=== PATIENT | female | born 1940 | race African-American/Black ===

== ENCOUNTER 2020-09-26 19:30 | Inpatient (IN) | payer MEDICARE, OTHER ==
[~2020-09-26] VITALS: Ht 152.4 cm; Wt 62.9 kg
[~2020-09-26 19:30] MED LIST: AML5T GT; METO50TA15 PO
[2020-09-26 21:07] LABS: Urine Bacteria FEW /hpf (None Seen); Urine Blood Negative /uL (Negative); Urine Mucus FEW (None Seen); Urine Specific Gravity 1.014 (1.001-1.035); Urine WBC 4 /hpf (0 - 5)
[2020-09-26 22:11] LABS: Basophils # (auto) 0.1 10 ^3/uL (0-0.2); Basophils % (auto) 0.5 % (0.0-2.0); Eosinophils # (auto) 0 10 ^3/uL (0-0.8); Eosinophils % (auto) 0.3 % (0.0-7.0); Hematocrit 38.3 % (36.0-46.0); Hemoglobin 12.8 g/dL (12.2-16.2); Lymphocytes # (auto) 1.1 10 ^3/uL (0.4-5.4); Mean Corpuscular Hemoglobin 27.9 pg (28.0-32.0); Mean Corpuscular Hgb Conc. 33.6 g/dL (32.0-36.0); Mean Corpuscular Volume 83.2 fL (80.0-100.0); Neutrophils # (auto) 11.5 10 ^3/uL (1.6-8.6); Neutrophils % (auto) 84.2 % (37.0-80.0); Nucleated Red Blood Cells % 0.1 %; Platelet Count (auto) 292 10^3/uL (140-450); Red Cell Distribution Width 14.5 % (11.8-14.3); White Blood Cell 13.6 10^3/uL (4.4-10.8)
[2020-09-26 22:26] LABS: INR 1.03 (0.9-1.15); Partial Thromboplastin Time 34.1 sec (23.0-31.2)
[2020-09-26 22:32] LABS: Albumin 2.9 g/dL (3.4-5.0); Anion Gap 6 (5-15); Blood Urea Nitrogen 12 mg/dL (7-18); Calcium 9.2 mg/dL (8.5-10.1); Carbon Dioxide 25 mmol/L (21-32); Chloride 107 mmol/L (98-107); Glucose 116 mg/dL (74-106); Magnesium 1.9 mg/dL (1.6-2.6); Potassium 3.8 mmol/L (3.5-5.1); Sodium 138 mmol/L (136-145)
[2020-09-26 22:34] LABS: Alanine Aminotransferase 27 U/L (13-56); Aspartate Aminotransferase 23 U/L (15-37); BUN/Creatinine Ratio 14.5; GFR African American 85 mL/min; GFR Non-African American 70 mL/min
[2020-09-26 22:39] LABS: Alkaline Phosphatase 167 U/L (45-117); Bilirubin, Total 0.5 mg/dL (0.2-1.0)
[2020-09-26] MEDS ORDERED: NITROGLYCERIN 0.4 MG SL TAB SL PRN (23:15)
[2020-09-26] MEDS ORDERED: TEMAZEPAM 15 MG CAP PO PRN (23:15)
[2020-09-26] MEDS ORDERED: SODIUM CHLORIDE 0.9% 500 ML IV ONE (23:15)
[2020-09-26] MEDS ORDERED: MORPHINE SULF INJ 2 MG/ML SYRINGE 1ML IV PRN (23:15)
[2020-09-26] MEDS ORDERED: ONDANSETRON HCL 4 MG/2 ML VIAL IV PRN (23:15)
[2020-09-26] MEDS ORDERED: DexAMETHasone SOD PHOS 10MG/1ML VIAL INJ IV ONE (23:15)
[2020-09-26] MEDS ORDERED: AZITHROMYCIN 500MG/ 250ML 250 ML IV ONE (23:15)
[2020-09-26] MEDS ORDERED: AMIODARONE HCL 150 MG in D5W 5% 100 ML IV ONE (23:45)
[2020-09-26] MEDS ORDERED: AMIODARONE 450mg/250ml AE 250 ML IV SCH (23:45)
[2020-09-26] MEDS ORDERED: AMIODARONE HCL (50 MG/ ML) 3 ML VIAL IV ONE (23:54)
[2020-09-27] MEDS: cefTRIAXone 1GM/50ML D5W 50 ML IV SCH ×2 (00:02→23:52)
[2020-09-27] MEDS: ACETAMINOPHEN 325 MG TAB PO PRN ×2 (00:03→23:42)
[2020-09-27] MEDS ORDERED: diphenhdrAMINE HCL 25 MG CAP PO SCH (00:45)
[2020-09-27] MEDS ORDERED: predniSONE 20 MG TAB PO SCH (00:45)
[2020-09-27 06:30] LABS: Basophils # (auto) 0 10 ^3/uL (0-0.2); Basophils % (auto) 0.1 % (0.0-2.0); Eosinophils # (auto) 0 10 ^3/uL (0-0.8); Hematocrit 35.1 % (36.0-46.0); Hemoglobin 11.9 g/dL (12.2-16.2); Lymphocytes # (auto) 0.7 10 ^3/uL (0.4-5.4); Lymphocytes % (auto) 5.8 % (10.0-50.0); Mean Corpuscular Volume 82.4 fL (80.0-100.0); Monocytes # (auto) 0.2 10 ^3/uL (0-1.3); Monocytes % (auto) 1.9 % (0.0-12.0); Neutrophils # (auto) 10.6 10 ^3/uL (1.6-8.6); Neutrophils % (auto) 92.2 % (37.0-80.0); Platelet Count (auto) 264 10^3/uL (140-450); Red Blood Cells 4.26 10^6/uL (4.0-5.20); Red Cell Distribution Width 14.5 % (11.8-14.3); White Blood Cell 11.5 10^3/uL (4.4-10.8)
[2020-09-27] MEDS: AMIODARONE 450mg/250ml AE 250 ML IV SCH (06:40)
[2020-09-27 06:46] LABS: Chloride 105 mmol/L (98-107); Potassium 3.8 mmol/L (3.5-5.1); Sodium 136 mmol/L (136-145)
[2020-09-27 06:55] LABS: Alanine Aminotransferase 23 U/L (13-56); Albumin 2.4 g/dL (3.4-5.0); Alkaline Phosphatase 141 U/L (45-117); Anion Gap 10 (5-15); Aspartate Aminotransferase 19 U/L (15-37); BUN/Creatinine Ratio 14.9; Bilirubin, Total 0.4 mg/dL (0.2-1.0); Blood Urea Nitrogen 10 mg/dL (7-18); Calcium 8.4 mg/dL (8.5-10.1); Carbon Dioxide 21 mmol/L (21-32); GFR African American 109 mL/min; GFR Non-African American 90 mL/min; Glucose 197 mg/dL (74-106)
[2020-09-27] MEDS: amLODIPine BESYLATE 5 MG TAB PO SCH (10:00)
[2020-09-27] MEDS ORDERED: DexAMETHasone SOD PHOS 10MG/1ML VIAL INJ IV SCH (10:00)
[2020-09-27] MEDS: FAMOTIDINE 20 MG TAB PO SCH ×2 (10:11→23:02)
[2020-09-27] MEDS: ENOXAPARIN SOD 40 MG/0.4 ML SYRINGE SC SCH (10:11)
[2020-09-27] MEDS: AZITHROMYCIN 500MG/ 250ML 250 ML IV SCH (12:42)
[2020-09-27] MEDS: IPRATROPIUM BROM 0.5 MG/2.5ML INH SOL NEB SCH (19:15)
[2020-09-27] MEDS: ALBUTEROL SULF 2.5 MG/0.5ML(0.5%) NEB SOLN NEB SCH (19:15)
[2020-09-27 23:53] VITALS: BP 98/71
[2020-09-28] MEDS: IPRATROPIUM BROM 0.5 MG/2.5ML INH SOL NEB SCH ×4 (00:21→18:19)
[2020-09-28] MEDS: ALBUTEROL SULF 2.5 MG/0.5ML(0.5%) NEB SOLN NEB SCH ×4 (00:22→18:18)
[2020-09-28] MEDS: AMIODARONE 450mg/250ml AE 250 ML IV SCH (06:11)
[2020-09-28] MEDS: FAMOTIDINE 20 MG TAB PO SCH ×2 (10:00→22:40)
[2020-09-28] MEDS: amLODIPine BESYLATE 5 MG TAB PO SCH (10:00)
[2020-09-28] MEDS: ENOXAPARIN SOD 40 MG/0.4 ML SYRINGE SC SCH (10:00)
[2020-09-28] MEDS: AZITHROMYCIN 500MG/ 250ML 250 ML IV SCH (10:00)
[2020-09-28] MEDS ORDERED: AMIODARONE HCL 200 MG TAB PO ONE (10:45)
[2020-09-28] MEDS ORDERED: METOPROLOL TARTRATE 25 MG TAB PO ONE (14:45)
[2020-09-28] MEDS: ACETAMINOPHEN 325 MG TAB PO PRN (16:16)
[2020-09-28 17:20] VITALS: BP 118/77
[2020-09-28] MEDS ORDERED: DOCUSATE SOD 100 MG CAP PO PRN (21:00)
[2020-09-28 22:00] VITALS: BP 113/68
[2020-09-28] MEDS: APIXABAN 5 MG TAB PO SCH (22:41)
[2020-09-28] MEDS: METOPROLOL TARTRATE 25 MG TAB PO SCH (22:41)
[2020-09-28] MEDS: AMIODARONE HCL 200 MG TAB PO SCH (22:42)
[2020-09-28] MEDS: cefTRIAXone 1GM/50ML D5W 50 ML IV SCH (23:06)
[2020-09-29] MEDS: IPRATROPIUM BROM 0.5 MG/2.5ML INH SOL NEB SCH ×4 (00:40→19:04)
[2020-09-29] MEDS: ALBUTEROL SULF 2.5 MG/0.5ML(0.5%) NEB SOLN NEB SCH ×4 (00:40→19:04)
[2020-09-29 05:00] VITALS: BP 125/71
[2020-09-29 08:34] VITALS: BP 121/82
[2020-09-29] MEDS: AZITHROMYCIN 500MG/ 250ML 250 ML IV SCH (09:35)
[2020-09-29] MEDS: APIXABAN 5 MG TAB PO SCH ×2 (09:36→21:16)
[2020-09-29] MEDS: AMIODARONE HCL 200 MG TAB PO SCH ×2 (09:36→21:16)
[2020-09-29] MEDS: METOPROLOL TARTRATE 25 MG TAB PO SCH ×2 (09:36→21:17)
[2020-09-29] MEDS: amLODIPine BESYLATE 5 MG TAB PO SCH (09:37)
[2020-09-29] MEDS: FAMOTIDINE 20 MG TAB PO SCH ×2 (09:37→21:16)
[2020-09-29] MEDS: AMOXICILLIN/CLAVUL 875 MG TAB PO SCH ×2 (10:45→21:16)
[2020-09-29] MEDS: ACETAMINOPHEN 325 MG TAB PO PRN (10:58)
[2020-09-29 13:00] VITALS: BP 117/70
[2020-09-29 16:36] VITALS: BP 121/82
[2020-09-29 22:00] VITALS: BP 106/52
[2020-09-30] MEDS: IPRATROPIUM BROM 0.5 MG/2.5ML INH SOL NEB SCH ×3 (00:23→13:26)
[2020-09-30] MEDS: ALBUTEROL SULF 2.5 MG/0.5ML(0.5%) NEB SOLN NEB SCH ×3 (00:23→13:26)
[2020-09-30 05:00] VITALS: BP 112/73
[2020-09-30 09:00] VITALS: BP 103/62
[2020-09-30] MEDS ORDERED: METO25TA36 PO (09:31)
[2020-09-30] MEDS ORDERED: APIX5TAB PO (09:31)
[2020-09-30] MEDS ORDERED: AZIT250T9 PO (09:31)
[2020-09-30] MEDS ORDERED: AMIO200T33 PO (09:31)
[2020-09-30] MEDS ORDERED: AMOX-277 PO (09:32)
[2020-09-30] MEDS ORDERED: AZITHROMYCIN 250 MG TAB PO SCH (10:00)
[2020-09-30] MEDS: APIXABAN 5 MG TAB PO SCH (10:14)
[2020-09-30] MEDS: AMOXICILLIN/CLAVUL 875 MG TAB PO SCH (10:14)
[2020-09-30] MEDS: FAMOTIDINE 20 MG TAB PO SCH (10:15)
[2020-09-30] MEDS: amLODIPine BESYLATE 5 MG TAB PO SCH (10:15)
[2020-09-30] MEDS: METOPROLOL TARTRATE 25 MG TAB PO SCH (10:15)
[2020-09-30] MEDS: AMIODARONE HCL 200 MG TAB PO SCH (10:16)
[2020-09-30] MEDS ORDERED: DEXT1SYP9 PO (10:55)
[2020-09-30 13:00] VITALS: BP 119/71
== END 2020-09-30 15:30 | disposition home or self-care (01) | DRG 193 ==
LOC: EDUNIT# 19:30 → EDBD 19:30 → ER 19:30 → TELE 23:14 → TELE-WESTW 09-28 12:34
PROVIDERS: ADMIT Nurse Practitioner; ATTEND Internal Medicine
PROC: 05HB33Z Insertion of Infusion Device into Right Basilic Vein, Percutaneous Approach (ICD-10-PCS; principal; 2020-09-27)
PROC: B54MZZA Ultrasonography of Right Upper Extremity Veins, Guidance (ICD-10-PCS; 2020-09-27)
DX: J13 Pneumonia due to Streptococcus pneumoniae (principal); J96.00 Acute respiratory failure, unspecified whether with hypoxia or hypercapnia; I26.99 Other pulmonary embolism without acute cor pulmonale; N39.0 Urinary tract infection, site not specified; D68.69 Other thrombophilia; R44.0 Auditory hallucinations; I48.91 Unspecified atrial fibrillation; Z20.822 Contact with and (suspected) exposure to COVID-19; D72.829 Elevated white blood cell count, unspecified; I10 Essential (primary) hypertension; Z88.2 Allergy status to sulfonamides; Z91.041 Radiographic dye allergy status; Z85.038 Personal history of other malignant neoplasm of large intestine
CPT/HCPCS: 36415; 71045; 71046; 71250; 78582; 80053; 81001; 83036; 83605; 83735; 83880; 84443; 84484; 85025; 85379; 85610; 85730; 87040; 87426; 93005; 93306; 93970; 94640; 96365; 96367; 96375; G0378; J0696; J1100; J7060

== ENCOUNTER 2022-01-22 13:19 | Emergency (ER) | payer MEDICARE, OTHER ==
[~2022-01-22] VITALS: Ht 152.4 cm; Wt 68.0 kg
[~2022-01-22 13:19] MED LIST changes: +AMIO200T33 PO; +AMOX-277 PO; +APIX5TAB PO; +AZIT250T9 PO; +DEXT1SYP9 PO; +METO25TA36 PO; -METO50TA15 PO
[2022-01-22 13:20] VITALS: BP 162/80
[2022-01-22] MEDS ORDERED: MORPHINE SULFATE 4 MG/ML SYR/VIAL IV ONE (14:00)
[2022-01-22] MEDS ORDERED: ONDANSETRON HCL 4 MG/2 ML VIAL IV ONE (14:00)
[2022-01-22] MEDS ORDERED: ASPirin 81 mg TAB PO ONE (14:00)
[2022-01-22 14:04] LABS: Basophils # (auto) 0.1 10 ^3/uL (0-0.2); Basophils % (auto) 0.9 % (0.0-2.0); Eosinophils # (auto) 0.2 10 ^3/uL (0-0.8); Eosinophils % (auto) 2.8 % (0.0-7.0); Hematocrit 42.4 % (36.0-46.0); Hemoglobin 13.4 g/dL (12.2-16.2); Lymphocytes # (auto) 2.5 10 ^3/uL (0.4-5.4); Lymphocytes % (auto) 37.8 % (10.0-50.0); Mean Corpuscular Hemoglobin 27.2 pg (28.0-32.0); Mean Corpuscular Hgb Conc. 31.5 g/dL (32.0-36.0); Mean Corpuscular Volume 86.2 fL (80.0-100.0); Monocytes # (auto) 0.4 10 ^3/uL (0-1.3); Monocytes % (auto) 6.4 % (0.0-12.0); Neutrophils # (auto) 3.4 10 ^3/uL (1.6-8.6); Neutrophils % (auto) 52.1 % (37.0-80.0); Nucleated Red Blood Cells % 0.3 %; Red Blood Cells 4.92 10^6/uL (4.0-5.20); Red Cell Distribution Width 14.7 % (11.8-14.3); White Blood Cell 6.6 10^3/uL (4.4-10.8)
[2022-01-22 14:27] LABS: Calcium 9.4 mg/dL (8.5-10.1); Potassium 3.8 mmol/L (3.5-5.1)
[2022-01-22 14:31] LABS: BUN/Creatinine Ratio 18.3; Bilirubin, Total 0.6 mg/dL (0.2-1.0); Total Protein 8.4 g/dL (6.4-8.2)
[2022-01-22 15:54] LABS: Partial Thromboplastin Time 25.9 sec (24.6-33.4)
== END 2022-01-22 21:30 | disposition left against medical advice (07) ==
LOC: ER 13:19
DX: I24.9 Acute ischemic heart disease, unspecified (principal); I12.9 Hypertensive chronic kidney disease with stage 1 through stage 4 chronic kidney disease, or unspecified chronic kidney disease; N18.9 Chronic kidney disease, unspecified; E78.5 Hyperlipidemia, unspecified; K21.9 Gastro-esophageal reflux disease without esophagitis; Z90.710 Acquired absence of both cervix and uterus; Z88.2 Allergy status to sulfonamides; Z88.8 Allergy status to other drugs, medicaments and biological substances
CPT/HCPCS: 36415; 71045; 80053; 83735; 84484; 85025; 85379; 85610; 85730; 93005

== ENCOUNTER 2022-05-03 22:09 | Inpatient (IN) | payer MEDICARE, OTHER ==
[~2022-05-03] VITALS: Ht 152.4 cm; Wt 68.2 kg
[2022-05-03] MEDS ORDERED: IOHEXOL 350 MG/ML 100ML IJ ONE (22:42)
[2022-05-03] MEDS ORDERED: diphenhdrAMINE HCL 50 MG/1 ML VL IV ONE (23:15)
[2022-05-03] MEDS ORDERED: methylPREDNISolone SOD SUCC 125 MG/2 ML VL IV ONE (23:15)
[2022-05-04 04:26] LABS: Basophils # (auto) 0 10 ^3/uL (0-0.2); Basophils % (auto) 0.5 % (0.0-2.0); Eosinophils # (auto) 0.4 10 ^3/uL (0-0.8); Eosinophils % (auto) 5.2 % (0.0-7.0); Hematocrit 39.4 % (36.0-46.0); Hemoglobin 12.6 g/dL (12.2-16.2); Lymphocytes # (auto) 1.4 10 ^3/uL (0.4-5.4); Lymphocytes % (auto) 19.6 % (10.0-50.0); Mean Corpuscular Volume 84.3 fL (80.0-100.0); Monocytes # (auto) 0.2 10 ^3/uL (0-1.3); Monocytes % (auto) 3.3 % (0.0-12.0); Neutrophils # (auto) 5.1 10 ^3/uL (1.6-8.6); Neutrophils % (auto) 71.4 % (37.0-80.0); Red Blood Cells 4.67 10^6/uL (4.0-5.20); Red Cell Distribution Width 14.1 % (11.8-14.3); White Blood Cell 7.2 10^3/uL (4.4-10.8)
[2022-05-04 04:47] LABS: Albumin 3.6 g/dL (3.4-5.0); BUN/Creatinine Ratio 22.2; Potassium 3.8 mmol/L (3.5-5.1)
[2022-05-04 04:50] LABS: Bilirubin, Total 0.5 mg/dL (0.2-1.0); Total Protein 7.8 g/dL (6.4-8.2)
[2022-05-04] MEDS ORDERED: DOCUSATE SOD 100 MG CAP PO PRN (05:15)
[2022-05-04] MEDS ORDERED: MORPHINE SULFATE INJ 2 MG/ml SYRG IV PRN (05:15)
[2022-05-04] MEDS ORDERED: MAALOX PLUS or MAALOX 30 ML PO PRN (05:15)
[2022-05-04] MEDS ORDERED: ACETAMINOPHEN 325 MG TAB PO PRN (05:15)
[2022-05-04] MEDS ORDERED: HYDROcodone-ACET 5/325MG TAB PO PRN (05:15)
[2022-05-04] MEDS ORDERED: ONDANSETRON HCL 4 MG/2 ML VIAL IV PRN (05:15)
[2022-05-04 12:07] LABS: Urine Bacteria FEW /hpf (None Seen); Urine Blood Negative /uL (Negative); Urine WBC 1 /hpf (0 - 5)
[2022-05-04] MEDS ORDERED: LORazepam 0.5 MG TAB PO ONE (12:30)
[2022-05-04 17:45] VITALS: BP 129/66
== END 2022-05-04 18:00 | disposition home or self-care (01) | DRG 556 ==
LOC: ER 22:09 → TELE 05-04 05:09 → EDBD 05-04 05:09 → TELE 05-04 18:00
PROVIDERS: ADMIT Hospitalist; ATTEND Internal Medicine Geriatric Medicine
DX: M62.838 Other muscle spasm (principal); I12.9 Hypertensive chronic kidney disease with stage 1 through stage 4 chronic kidney disease, or unspecified chronic kidney disease; I48.91 Unspecified atrial fibrillation; N18.9 Chronic kidney disease, unspecified; K21.9 Gastro-esophageal reflux disease without esophagitis; R26.2 Difficulty in walking, not elsewhere classified; E78.5 Hyperlipidemia, unspecified; Z20.822 Contact with and (suspected) exposure to COVID-19; R04.0 Epistaxis; R29.702 NIHSS score 2; Z80.49 Family history of malignant neoplasm of other genital organs; Z82.49 Family history of ischemic heart disease and other diseases of the circulatory system; Z83.3 Family history of diabetes mellitus; Z85.038 Personal history of other malignant neoplasm of large intestine; Z90.710 Acquired absence of both cervix and uterus; Z88.2 Allergy status to sulfonamides; Z88.8 Allergy status to other drugs, medicaments and biological substances; Z91.041 Radiographic dye allergy status
CPT/HCPCS: 36415; 70496; 70551; 71045; 80053; 81001; 84484; 85025; 87426; 93005; 96374; 96375; 99291; G0378

== ENCOUNTER 2022-10-24 15:26 | Emergency (ER) | payer MEDICARE, OTHER ==
[~2022-10-24] VITALS: Ht 152.4 cm; Wt 68.5 kg
[~2022-10-24 15:26] MED LIST changes: -AMOX-277 PO; +AMOX875T4 PO; +AZIT-43 PO; -AZIT250T9 PO
[2022-10-24 17:01] LABS: Urine Bacteria NONE SEEN /hpf (None Seen); Urine Blood Negative /uL (Negative); Urine Mucus FEW (None Seen); Urine WBC 29 /hpf (0 - 5)
[2022-10-24 17:22] LABS: Basophils # (auto) 0.1 10 ^3/uL (0-0.2); Basophils % (auto) 1.1 % (0.0-2.0); Eosinophils # (auto) 0.3 10 ^3/uL (0-0.8); Eosinophils % (auto) 5.6 % (0.0-7.0); Hematocrit 40.3 % (36.0-46.0); Lymphocytes # (auto) 2.5 10 ^3/uL (0.4-5.4); Mean Corpuscular Hemoglobin 27.7 pg (28.0-32.0); Mean Corpuscular Hgb Conc. 32.2 g/dL (32.0-36.0); Mean Corpuscular Volume 85.9 fL (80.0-100.0); Monocytes # (auto) 0.4 10 ^3/uL (0-1.3); Monocytes % (auto) 6.5 % (0.0-12.0); Neutrophils # (auto) 2.4 10 ^3/uL (1.6-8.6); Neutrophils % (auto) 42.8 % (37.0-80.0); Nucleated Red Blood Cells % 0.4 %; Red Blood Cells 4.69 10^6/uL (4.0-5.20); Red Cell Distribution Width 14.4 % (11.8-14.3); White Blood Cell 5.7 10^3/uL (4.4-10.8)
[2022-10-24 17:38] LABS: Albumin 3.8 g/dL (3.4-5.0); Calcium 8.9 mg/dL (8.5-10.1); Magnesium 2.3 mg/dL (1.6-2.6); Potassium 4.2 mmol/L (3.5-5.1)
[2022-10-24 17:41] LABS: BUN/Creatinine Ratio 22.6 (10.0-20.0); Bilirubin, Total 0.6 mg/dL (0.2-1.0); Total Protein 7.8 g/dL (6.4-8.2)
[2022-10-24] MEDS ORDERED: diphenhdrAMINE HCL 50 MG/1 ML VL IV ONE (17:45)
[2022-10-24] MEDS ORDERED: IOHEXOL 350 MG/ML 100ML IJ ONE (20:02)
[2022-10-24] MEDS ORDERED: ALBU108A5 IN ×3 (22:03→22:58)
[2022-10-24] MEDS ORDERED: NITR-87 PO ×3 (22:03→22:58)
[2022-10-24 22:53] VITALS: BP 120/52
== END 2022-10-24 23:01 | disposition home or self-care (01) ==
LOC: ER 15:26
DX: R06.03 Acute respiratory distress (principal); R79.1 Abnormal coagulation profile; I48.91 Unspecified atrial fibrillation; E78.5 Hyperlipidemia, unspecified; K21.9 Gastro-esophageal reflux disease without esophagitis; I12.9 Hypertensive chronic kidney disease with stage 1 through stage 4 chronic kidney disease, or unspecified chronic kidney disease; N18.9 Chronic kidney disease, unspecified; Z90.49 Acquired absence of other specified parts of digestive tract; Z85.038 Personal history of other malignant neoplasm of large intestine; Z90.710 Acquired absence of both cervix and uterus; Z98.890 Other specified postprocedural states
CPT/HCPCS: 36415; 71046; 71260; 80053; 81001; 83735; 83880; 84484; 85025; 85379; 93005; 96374; 99285; J1200; Q9967

== ENCOUNTER 2023-09-15 07:53 | Emergency (ER) | payer MEDICARE, BC ==
[~2023-09-15] VITALS: Ht 152.4 cm; Wt 65.0 kg
[~2023-09-15 07:53] MED LIST changes: +ALBU108A5 IN; +NITR-87 PO
[2023-09-15 09:18] VITALS: BP 97/50; PULSE 74; RESP 16; TEMP 97.8; O2SAT 98
[2023-09-15] MEDS ORDERED: DICL1GEL59 EX (09:38)
[2023-09-15] MEDS ORDERED: ACET-1079 PO (09:38)
[2023-09-15] MEDS ORDERED: LIDO5CRE14 EX (09:38)
== END 2023-09-15 09:48 | disposition home or self-care (01) ==
LOC: ER 07:53
DX: M25.532 Pain in left wrist (principal); M25.552 Pain in left hip; I12.9 Hypertensive chronic kidney disease with stage 1 through stage 4 chronic kidney disease, or unspecified chronic kidney disease; N18.9 Chronic kidney disease, unspecified; E78.5 Hyperlipidemia, unspecified; Z90.710 Acquired absence of both cervix and uterus; W18.39XA Other fall on same level, initial encounter; Y93.89 Activity, other specified; Y92.89 Other specified places as the place of occurrence of the external cause; Y99.8 Other external cause status
CPT/HCPCS: 70450; 73110; 73502

== ENCOUNTER 2025-01-31 12:29 | Inpatient (IN) | payer MEDICARE, BC ==
[~2025-01-31] VITALS: Ht 152.4 cm; Wt 67.0 kg
[~2025-01-31 12:29] MED LIST changes: +ACET-1079 PO; +DICL1GEL59 EX; +LIDO5CRE14 EX
--- NOTE | 2025-01-31 13:53 | ECG ---
[facility] Test Date: 2025-01-31 Test Time: 13:38:08 Pat Name: KENNETH HAMEED Department: Room: 0222T Gender: F Occupational Therapy Department Chair: WINIFRED : 1939-03-11 Requested By: EMERGENCY EMERGENCY Order Number: [id number] Reading MD: Az He Measurements Intervals [place] Rate: 84 P: 0 MI: 0 QRS: 4 QRSD: 92 T: 30 QT: 409 QTc: 484 Interpretive Statements Atrial fibrillation Electronically Signed On 02-06-2025 20:21:02 PDT by Az He Please click the below link to view image of tracing.
--- NOTE | 2025-01-31 14:20 | ED.PDOC ---
History of Present Illness HPI Comments 84 y/o F, presents to the ED for CC of headache. Patient states, she has been experiencing a left sided headache with aura that radiates from her left-eye to her occipital region sudden onset, this morning (01/31/25). Patient further relays, to have associated symptoms of palpitations. Patient denies nausea, vomiting, weakness, numbness, or tingling. No other symptoms or modifying factors are present at this time. Chief Complaint: Headache Time Seen by MD: 13:15 Primary Care Provider: CHRIS PINK Allergies: Coded Allergies: Sodium Sulfate (Verified Allergy, Severe, 03/17/13) Sulfa Antibiotics (Verified Allergy, Severe, 02/09/15) Sulfa Drugs (Verified Allergy, Severe, 03/17/13) Iodine (Verified Allergy, Unknown, 09/27/20) Home Meds Active Scripts Lidocaine (Anorectal) (Lidocaine 5%) 5 % Cre, 5 % EX DAILYP PRN for 30 Days, #30 PATCH 0 Refills Prov:LISA CARVALHO NP 09/15/23 Diclofenac Sodium (Topical) (Voltaren Arthritis Pain) 1 % Gel, 1 % EX QID for 10 Days, #60 GRAMS 0 Refills Prov:LISA CARVALHO NP 09/15/23 Acetaminophen (Tylenol) 325 Mg Tb, 325 MG PO QID for 10 Days, #40 TAB 0 Refills Prov:LISA CARVALHO NP 09/15/23 Nitrofurantoin Monohydrate Mac (Macrobid) 100 Mg Cap, 100 MG PO BID for 7 Days, #14 CAP Prov:CLAYTON CHONG 10/24/22 Albuterol Sulfate (Albuterol Sulfate Hfa) 108 Mcg/Act Aer, 108 MCG IN TID PRN, #1 AER Prov:CLAYTON CHONG 10/24/22 Dextromethorphan-Guaifenesin (Robitussin-Dm) 10 Ml Sr, 10 ML PO Q4HP PRN, #250 ML 0 Refills Prov:DAVID MILLER MD 09/30/20 Amoxicillin & Pot Clavulanate (Amoxicillin/Potassium Cla) 875 Mg Tab, 1 TAB PO BID for 3 Days, #6 TAB Prov:DAVID MILLER MD 09/30/20 Azithromycin (Azithromycin) 250 Mg Tab, 500 MG PO DAILY for 3 Days, #6 TAB Prov:DAVID MILLER MD 09/30/20 Apixaban Base (ELIQUIS) 5 Mg Tab, 5 MG PO BID for 30 Days, #60 TAB Prov:DAVID MILLER MD 09/30/20 Amiodarone Hcl (Amiodarone Hcl) 200 Mg Tab, 200 MG PO BID for 30 Days, #60 TAB Prov:DAVID MILLER MD 09/30/20 Metoprolol Succinate (Toprol Xl) 25 Mg Tab, 1 TAB PO DAILY, #30 TAB 0 Refills Prov:DAVID MILLER MD 09/30/20 Reported Medications Amlodipine Besylate (NORVASC TABLET) 5 Mg Tb, 0 GT 03/17/13 Mode of Arrival: Ambulatory Past Medical History PAST MEDICAL HISTORY: AFIB, Cancer, CKF, GERD, High Lipids, HTN Surgical History: Appendectomy, Hysterectomy 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 Family History Family History: Reviewed,noncontributory to illness, Family hx of Cancer, Family hx of heart daniel Social History Smoker: Non-Smoker Alcohol: Denies ETOH Use Drugs: Denies Drug Use Lives In: Home Constitutional: denies: chills, diaphoresis, fatigue, fever, malaise, sweats, weakness, others EENTM: denies: blurred vision, double vision, ear bleeding, ear discharge, ear drainage, ear pain, ear ringing, eye pain, eye redness, hearing loss, mouth pain, mouth swelling, nasal discharge, nose bleeding, nose congestion, nose pain, photophobia, tearing, throat pain, throat swelling, voice changes, others Respiratory: denies: cough, hemoptysis, orthopnea, SOB at rest, shortness of breath, SOB with excertion, stridor, wheezing, others Cardiovascular: denies: chest pain, dizzy spells, diaphoresis, Dyspnea on exertion, edema, irregular heart beat, left arm pain, lightheadedness, palpitations, PND, syncope, others Gastrointestinal: denies: abdomen distended, abdominal pain, blood streaked bowels, constipated, diarrhea, dysphagia, difficulty swallowing, hematemesis, melena, nausea, poor appetite, poor fluid intake, rectal bleeding, rectal pain, vomiting, others Genitourinary: denies: abnormal vagina bleeding, burning, dyspareunia, dysuria, flank pain, frequency, hematuria, incontinence, pain, , vagina discharge, urgency, others Neurological: reports: headache; denies: dizziness, fainting, left sided numbness, left sided weakness, numbness, paresthesia, pre-existing deficit, right sided numbness, right sided weakness, seizure, speech problems, tingling, tremors, weakness, others Musculoskeletal: denies: back pain, gout, joint pain, joint swelling, muscle pain, muscle stiffness, neck pain, others Integumetry: denies: bruises, change in color, change in hair/nails, dryness, laceration, lesions, lumps, rash, wounds, others Allergic/Immunocompromised: denies: Difficulty Healing, Frequent Infections, Hives, Itching, others Hematologic/Lymphatic: denies: anemia, blood clots, easy bleeding, easy bruising, swollen glands, others Endocrine: denies: excessive hunger, excessive sweating, excessive thirst, excessive urination, flushing, intolerance to cold, intolerance to heat, unex plained weight gain, unexplained weight loss, others Psychiatric: denies: anxiety, bipolar disorder, depression, hopeless, panic disorder, schizophrenia, sleepless, suicidal, others All Other Systems: Reviewed and Negative Physical Exam General Appearance: Mild Distress HEENT: Normal ENT Inspection, Pharynx Normal, TMs Normal, Other (Tenderness to the left sinus region) Neck: Full Range of Motion, Non-Tender, Normal, Normal Inspection Respiratory: Chest Non-Tender, Lungs Clear, No Accessory Muscle Use, No Respiratory Distress, Normal Breath Sounds Cardiovascular: No Edema, No JVD, No Murmur, No Gallop, Normal Peripheral Pulses, Regular Rate/Rhythm Breast Exam: Deferred Gastrointestinal: No Organomegaly, Non Tender, No Pulsatile Mass, Normal Bowel Sounds, Soft Genitalia: Deferred Pelvic: Deferred Rectal: Deferred Extremities: No calf tenderness, Normal capillary refill, No pedal edema Musculoskeletal : Apperance: Normal Neurologic: Alert, 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 Was a procedure done?: No EKG EKG : Pulse Rate (adult): 84 Elmer: Normal Cardiac Rhythm: Afib Block: None Hypertrophy: None ST: Normal Differential Dx Considerations may include: frontal headache, migraine, dehydration, hypotension X-Ray, Labs, Meds, VS Vital Signs Date Time Temp Pulse Resp B/P (MAP) Pulse Ox O2 Delivery O2 Flow Rate FiO2 01/31/25 15:11 98.2 47 16 123/50 (74) 98 98.2 01/31/25 14:32 84 01/31/25 13:38 84 01/31/25 12:30 97.1 63 16 139/61 97 97.1 Lab Test 01/31/25 14:13 Range/Units White Blood Count 8.4 4.4-10.8 10^3/uL Red Blood Count 4.75 4.0-5.20 10^6/uL Hemoglobin 13.3 12.2-16.2 g/dL Hematocrit 40.4 36.0-46.0 % Mean Corpuscular Volume 85.1 80.0-100.0 fL Mean Corpuscular Hemoglobin 28.0 28.0-32.0 pg Mean Corpuscular Hemoglobin Concent 32.9 32.0-36.0 g/dL Red Cell Distribution Width 14.8 H 11.8-14.3 % Platelet Count 217 140-450 10^3/uL Mean Platelet Volume 9.4 6.9-10.8 fL Neutrophils (%) (Auto) 62.9 37.0-80.0 % Lymphocytes (%) (Auto) 23.9 10.0-50.0 % Monocytes (%) (Auto) 5.1 0.0-12.0 % Eosinophils (%) (Auto) 7.4 H 0.0-7.0 % Basophils (%) (Auto) 0.7 0.0-2.0 % Neutrophils # (Auto) 5.3 1.6-8.6 10 ^3/uL Lymphocytes # (Auto) 2.0 0.4-5.4 10 ^3/uL Monocytes # (Auto) 0.4 0-1.3 10 ^3/uL Eosinophils # (Auto) 0.6 0-0.8 10 ^3/uL Basophils # (Auto) 0.1 0-0.2 10 ^3/uL Nucleated Red Blood Cells 0.1 % Sodium Level 142 136-145 mmol/L Potassium Level 3.5 3.5-5.1 mmol/L Chloride Level 104 98-107 mmol/L Carbon Dioxide Level 26 20-31 mmol/L Anion Gap 12 5-15 Blood Urea Nitrogen 15 9-23 mg/dL Creatinine 1.05 H 0.550-1.02 mg/dL Glomerular Filtration Rate Calc 53 >90 mL/min BUN/Creatinine Ratio 14.3 10.0-20.0 Serum Glucose 176 H 74-106 mg/dL Calcium Level 9.7 8.7-10.4 mg/dL HEAD WITHOUT CONTRAST CT: IMPRESSION: 1. No acute intracranial abnormality. 2. Left maxillary sinusitis. The patient's CBC is within normal limits The chemistry panel is within normal limits except for a creatinine of 1.05 At this time, the patient is being admitted The patient is also being given Zithromax for the sinusitis Images Reviewed?: Images reviewed and evaluated by me Time of 1ST Reevaluation: 13:45 Reevaluation 1ST: Unchanged Patient Education/Counseling: Diagnosis, Treatment, Prognosis Family Education/Counseling: No Family Present SEPSIS Sepsis Screen Date sepsis recognized/suspect: Jan 31, 2025 Time Sepsis recognized/suspect: 1230 Recent Procedure: No On Antibiotic Therapy: No Respiratory Rate >20: No Heart Rate >90: No Temp<36 C (96.8 F) or >38.3 C: No SBP <90 or MAP <65 mmHG: No New Acute Mental Status Change: No Is the patient on CPAP, BIPAP,: No Physician Orders Urinalysis (01/31/25 14:01) Head Without Contrast (01/31/25 14:01) Clinic Manager (01/31/25 14:01) Pulse Oximetry (01/31/25 14:01) Blood Pressure (01/31/25 14:01) Heplock Iv (01/31/25 14:01) Vital Signs Date Time Temp Pulse Resp B/P (MAP) Pulse Ox O2 Delivery O2 Flow Rate FiO2 01/31/25 15:11 98.2 47 16 123/50 (74) 98 98.2 01/31/25 14:32 84 01/31/25 13:38 84 01/31/25 12:30 97.1 63 16 139/61 97 97.1 Laboratory Tests Test 01/31/25 14:13 White Blood Count 8.4 10^3/uL (4.4-10.8) Departure 1 Departure Time of Disposition: 17:13 Impression: Primary Impression: Cephalgia Qualified Codes: R51.9 - Headache, unspecified Additional Impressions: Autonomic dysfunction Maxillary sinusitis Qualified Codes: J01.00 - Acute maxillary sinusitis, unspecified Disposition: 09 ADMITTED INPATIENT Admit to: Tele Condition: Fair Critical Care Note Critical Care Time?: No Stability Stability form required: Yes Unstable for transfer: ED Physician Assesment (Clinical assesment) Heart Score Heart Score: Heart Score Response (Comments) Value History N/A 0 EKG N/A 0 Age N/A 0 Risk Factors N/A 0 Troponin N/A 0 Total 0 I personally scribed for BROOKLYNN SPENCE MD ([email or web address]) on 01/31/25 at 14:20. Electronically submitted by Mitzi Ty ([email or web address]). I personally scribed for BROOKLYNN SPENCE MD ([email or web address]) on 01/31/25 at 14:31. Electronically submitted by Mitzi Ty ([email or web address]). I personally scribed for BROOKLYNN SPENCE MD ([email or web address]) on 01/31/25 at 14:32. Electronically submitted by Mitzi Ty ([email or web address]). I personally scribed for BROOKLYNN SPENCE MD ([email or web address]) on 01/31/25 at 16:17. Electronically submitted by Mitzi Ty ([email or web address]). I personally scribed for BROOKLYNN SPENCE MD ([email or web address]) on 01/31/25 at 16:18. Electronically submitted by Mitzi Ty ([email or web address]). BROOKLYNN SPENCE MD Jan 31, 2025 14:20
[2025-01-31 14:33] LABS: Hematocrit 40.4 % (36.0-46.0); Hemoglobin 13.3 g/dL (12.2-16.2); Mean Corpuscular Hemoglobin 28.0 pg (28.0-32.0); Mean Corpuscular Volume 85.1 fL (80.0-100.0); Nucleated Red Blood Cells % 0.1 %
--- NOTE | 2025-01-31 14:39 | DVH ---
CT HEAD WITHOUT CONTRAST INDICATION: LUCAS COMPARISON: CT HEAD WITHOUT CONTRAST on DOS: 09/15/23, BRAIN HEAD WO CONTRAST on DOS: 05/04/22, HEAD WIT HOUT CONTRAST on DOS: 05/03/22 TECHNIQUE: CT of the head without intravenous contrast. RADIATION DOSE: CTDIvol: 53.46 mGy, DLP: 53.46 mGy*cm FINDINGS: There is no evidence of acute intracranial hemorrhage, extra-axial collection, mass effect, midline s hift, herniation or hydrocephalus. The ventricles, sulci and cisterns are age appropriate. The torres -white differentiation is intact. Complete opacification of the left maxillary sinus . Scattered op acification of the ethmoid air cells. The surrounding soft tissues and osseous structures are unrema rkable. IMPRESSION: 1. No acute intracranial abnormality. 2. Left maxillary sinusitis.
[2025-01-31 14:41] LABS: Chloride 104 mmol/L (98-107); Sodium 142 mmol/L (136-145)
[2025-01-31 14:43] LABS: Anion Gap 12 (5-15); Calcium 9.7 mg/dL (8.7-10.4); Carbon Dioxide 26 mmol/L (20-31)
[2025-01-31 14:45] LABS: Potassium 3.5 mmol/L (3.5-5.1)
[2025-01-31 14:48] LABS: Glucose 176 mg/dL (74-106)
[2025-01-31 15:15] LABS: BUN/Creatinine Ratio 14.3 (10.0-20.0); Blood Urea Nitrogen 15 mg/dL (9-23)
[2025-01-31 20:15] LABS: Urine Protein, UAD 1+ (Negative)
[2025-01-31 23:16] LABS: Amphetamine Screen, Urine Neg (NEGATIVE); Barbiturate Scree,Urine Neg (NEGATIVE); Benzodiazephine Screen, Urine Neg (NEGATIVE); Cocaine Screen, Urine Neg (NEGATIVE)
[2025-01-31 23:17] LABS: Phencyclidine Screen, Urine Neg (NEGATIVE)
[2025-01-31 23:18] LABS: Cannabinoid Screen, Urine Neg (NEGATIVE); Opiate Scree,Urine Neg (NEGATIVE)
[2025-01-31] MEDS ORDERED: ONDANSETRON HCL 4 MG/2 ML VIAL IV PRN (23:30)
[2025-01-31] MEDS ORDERED: ACETAMINOPHEN 325 MG TAB PO PRN (23:30)
[2025-01-31] MEDS ORDERED: MORPHINE SULFATE INJ 2 MG/ml SYRG IV PRN (23:30)
[2025-01-31] MEDS: ENOXAPARIN SOD 100 MG/1 ML SYRINGE SC SCH (23:30)
--- NOTE | 2025-01-31 23:33 | DVHHPRES ---
History of Present Illness Resident Creating Document: SCOTTIE CHRISTIANSON RESIDENT History of Present Illness This is an 84-year-old female with past medical history of questionable atrial fibrillation, glaucoma, hypertension, colon cancer status post colectomy, asthma, sleep apnea on CPAP presented to the ER with chief complain of headache, dizziness. Patient reported of 2 episodes of headache since last 2 days. She describes headache as heaviness, throbbing radiating from occipital to parietal region, associated with flashing lights and eye pain. She complains of dizziness without loss of consciousness, starting as the same time as headache. She also reports urinary urgency since last 6-7 months. Previous hospitalization: PMHx: Questionable atrial fibrillation (no EKG in [facility] record showing atrial fibrillation), glaucoma, hypertension, colon cancer status post colectomy, asthma, sleep apnea on CPAP PSHx: Colectomy, hysterectomy, appendectomy, lumpectomy, 3 surgeries of neck in 6 surgeries of back after trauma Social history: Denies smoking, alcohol, recreational drug use. Lives in house. Full code. Next of kin daughter Home medication: Albuterol, amlodipine, apixaban Allergic history: Iodine, sodium sulfate, sulfa antibiotics, sulfa drugs. Patient was examined at bedside today. Patient is admitted for further evaluation and management Review of Systems Review of Systems ROS: Constitutional: Denies weight loss, fever and chills. HEENT: Blurring, light flashing in bilateral eyes. Respiratory: Denies shortness of breath and cough Cardiovascular: Denies chest discomfort or palpitations GI: Denies abdominal pain, nausea, vomiting and diarrhea. : Urinary urgency, reports having to collecting system of bilateral kidneys Musculoskeletal: Denies myalgias and joint pain Skin: Denies rash and pruritus. Neurological: Dizziness, headache Allergies: Coded Allergies: Sodium Sulfate (Verified Allergy, Severe, 03/17/13) Sulfa Antibiotics (Verified Allergy, Severe, 02/09/15) Sulfa Drugs (Verified Allergy, Severe, 03/17/13) Iodine (Verified Allergy, Unknown, 09/27/20) Exam Vital Signs Vital Signs Date Time Temp Pulse Resp B/P (MAP) Pulse Ox O2 Delivery O2 Flow Rate FiO2 01/31/25 20:23 66 20 98 Room Air 01/31/25 20:23 98.0 115/73 (87) 98.0 Exam General: Patient alert and oriented in person, place and time. Patient following commands. HEENT: Normocephalic, atraumatic, moist mucous membranes Respiratory/pulmonary: Clear lungs bilaterally, vesicular murmurs present in almost all lung lewis, no associated crackles or wheezes. Cardiovascular: Normal heart sounds S1 and S2 with no associated murmurs Abdomen: Abdomen nondistended, there is no pain to palpation in any of the abdominal quadrants, no palpable masses. Extremities: Grade 1 pitting edema in bilateral foot Peripheral Pulses: 3+ Radial (R). 3+ Radial (L). 3+ Dorsalis pedis (R). 3+ Dorsalis pedis(L) Skin: No rashes or pruritus, there is no sacral edema present at this time. Neurological: Intact cranial nerves with no focal neurologic deficits Labs/Xrays Labs Test 01/31/25 19:40 01/31/25 14:13 Range/Units Urine Color Yellow Yellow Urine Clarity Clear Clear Urine pH 6.0 5.0-9.0 Urine Specific Pandora 1.033 1.001-1.035 Urine Protein 1+ H Negative Urine Ketones 1+ H Negative Urine Blood Negative Negative /uL Urine Nitrite Negative Negative Urine Bilirubin Negative Negative Urine Urobilinogen 2 H Negative mg/dL Urine Leukocyte Esterase 1+ Negative /uL Urine RBC 2 0 - 4 /hpf Urine Microscopic WBC 3 0-5 /HPF Urine Squamous Epithelial Cells Few <5 /hpf Urine Bacteria None seen None Seen /hpf Urine Hyaline Casts Mod 0 - 2 /lpf Urine Mucus Few None Seen Urine Glucose Normal Normal mg/dL Urine Barbiturates Screen Neg NEGATIVE Urine Amphetamines Screen Neg NEGATIVE Urine Benzodiazepines Screen Neg NEGATIVE Urine Cocaine Screen Neg NEGATIVE White Blood Count 8.4 4.4-10.8 10^3/uL Red Blood Count 4.75 4.0-5.20 10^6/uL Hemoglobin 13.3 12.2-16.2 g/dL Hematocrit 40.4 36.0-46.0 % Mean Corpuscular Volume 85.1 80.0-100.0 fL Mean Corpuscular Hemoglobin 28.0 28.0-32.0 pg Mean Corpuscular Hemoglobin Concent 32.9 32.0-36.0 g/dL Red Cell Distribution Width 14.8 H 11.8-14.3 % Platelet Count 217 140-450 10^3/uL Mean Platelet Volume 9.4 6.9-10.8 fL Neutrophils (%) (Auto) 62.9 37.0-80.0 % Lymphocytes (%) (Auto) 23.9 10.0-50.0 % Monocytes (%) (Auto) 5.1 0.0-12.0 % Eosinophils (%) (Auto) 7.4 H 0.0-7.0 % Basophils (%) (Auto) 0.7 0.0-2.0 % Neutrophils # (Auto) 5.3 1.6-8.6 10 ^3/uL Lymphocytes # (Auto) 2.0 0.4-5.4 10 ^3/uL Monocytes # (Auto) 0.4 0-1.3 10 ^3/uL Eosinophils # (Auto) 0.6 0-0.8 10 ^3/uL Basophils # (Auto) 0.1 0-0.2 10 ^3/uL Nucleated Red Blood Cells 0.1 % Sodium Level 142 136-145 mmol/L Potassium Level 3.5 3.5-5.1 mmol/L Chloride Level 104 98-107 mmol/L Carbon Dioxide Level 26 20-31 mmol/L Anion Gap 12 5-15 Blood Urea Nitrogen 15 9-23 mg/dL Creatinine 1.05 H 0.550-1.02 mg/dL Glomerular Filtration Rate Calc 53 >90 mL/min BUN/Creatinine Ratio 14.3 10.0-20.0 Serum Glucose 176 H 74-106 mg/dL Hemoglobin A1c 5.4 <5.7 % A1C Calcium Level 9.7 8.7-10.4 mg/dL SEPSIS Sepsis Screen Date sepsis recognized/suspect: Jan 31, 2025 Time Sepsis recognized/suspect: 2023 Recent Procedure: No On Antibiotic Therapy: No Respiratory Rate >20: No Heart Rate >90: No Temp<36 C (96.8 F) or >38.3 C: No SBP <90 or MAP <65 mmHG: No New Acute Mental Status Change: No Is the patient on CPAP, BIPAP,: No Physician Orders Hepatic Panel (01/31/25 22:44) C-Reactive Protein (01/31/25 22:44) Drug Screen (01/31/25 22:44) Lipase (01/31/25 22:44) Lipid Panel (01/31/25 22:44) Magnesium (01/31/25 22:44) Phosphorus (01/31/25 22:44) PTPTT (01/31/25 22:44) Thyroid Stimulating Hormone (01/31/25 22:44) Vitamin B12 (01/31/25 22:44) Vitamin D, 25-Hydroxy (01/31/25 22:44) Vital Signs Date Time Temp Pulse Resp B/P (MAP) Pulse Ox O2 Delivery O2 Flow Rate FiO2 01/31/25 20:23 66 20 98 Room Air 01/31/25 20:23 98.0 66 20 115/73 (87) 98 98.0 Laboratory Tests Test 01/31/25 14:13 White Blood Count 8.4 10^3/uL (4.4-10.8) Assessment/Plan Assessment/Plan Presyncope, rule out cardiac causes Paroxysmal atrial fibrillation Primary headache Maxillary sinusitis Head CT shows left maxillary sinusitis Echocardiogram, carotid duplex, CXR ordered COVID and influenza serology ordered Orthostatic Vitals ordered Monitor on telemetry for life-threatening arrhythmias Started on Unasyn Hypertension Continue amlodipine 5 mg daily History of glaucoma Continue latanoprost CKD class IIIa GFR-53 Strict control of blood pressure, diabetes Discussed avoiding nephrotoxins like NSAIDS, contrast Low salt diet, maintain hydration Repeat BMP Hypokalemia Supplemented Repeat BMP Questionable paroxysmal atrial fibrillation, on Eliquis EKG in [facility] shows sinus tachycardia with PACs Patient on Eliquis at home, continue therapeutic Lovenox DIET: Cardiac DVT PROPHYLAXIS: Lovenox GI PROPHYLAXIS: Protonix CODE STATUS: Goals of care discussed with patient at bedside for more than 35 minutes. Full code DISPOSITION: Telemetry Patient's status and plan discussed with the patient. Case discussed with Dr. Cheek Plan discussed with: Patient, Other (Nurses) My Orders Orders - SCOTTIE CHRISTIANSON RESIDENT Procedure Category Date Status Time Hepatic Panel LAB 01/31/25 Logged 22:44 C-Reactive Protein LAB 01/31/25 Logged 22:44 Drug Screen LAB 01/31/25 In Process 22:44 Lipase LAB 01/31/25 Logged 22:44 Lipid Panel LAB 01/31/25 Logged 22:44 Magnesium LAB 01/31/25 Logged 22:44 Phosphorus LAB 01/31/25 Logged 22:44 PTPTT LAB 01/31/25 Logged 22:44 Thyroid Stimulating LAB 01/31/25 In Process Hormone 22:44 Vitamin B12 LAB 01/31/25 Logged 22:44 Vitamin D, 25-Hydroxy LAB 01/31/25 In Process 22:44 Date of Service: Jan 31, 2025 Billing Provider: LISA CHEEK MD Common Visit Codes: [id number] INP/OBS CARE (HIGH) Secondary Visit Codes: [id number] CARE PLAN 30 MINUTES SCOTTIE CHRISTIANSON RESIDENT Jan 31, 2025 23:33 LISA CHEEK MD Feb 01, 2025 09:04
[2025-02-01 00:02] LABS: INR 1.12 (0.9-1.15); Partial Thromboplastin Time 29.9 SEC (24.5-34.5); Prothrombin Time 11.7 sec (9.3-11.8)
[2025-02-01 00:05] LABS: Alanine Aminotransferase 17.0 U/L (7-40); Albumin 4.1 g/dL (3.2-4.8); Alkaline Phosphatase 83.0 U/L (46-116); Bilirubin, Direct 0.1 mg/dL (<0.3); Cholesterol 191.0 mg/dL (< 200); HDL Cholesterol 59.0 mg/dL (40-59); Magnesium 1.7 mg/dL (1.6-2.6); Total Protein 7.8 g/dL (5.7-8.2); Triglycerides 101.0 mg/dL (< 150)
[2025-02-01 00:06] LABS: Bilirubin, Total 0.5 mg/dL (0.2-1.0)
[2025-02-01 00:19] LABS: Lipase 42.0 U/L (12-53)
[2025-02-01 01:22] LABS: Hematocrit 37.8 % (36.0-46.0); Hemoglobin 12.2 g/dL (12.2-16.2); Mean Corpuscular Hemoglobin 27.7 pg (28.0-32.0); Mean Corpuscular Volume 85.6 fL (80.0-100.0); Nucleated Red Blood Cells % 0.0 %
[2025-02-01 01:40] LABS: Alanine Aminotransferase 18 U/L (7-40); Albumin 4.1 g/dL (3.2-4.8); Alkaline Phosphatase 83 U/L (46-116); Anion Gap 12 (5-15); BUN/Creatinine Ratio 18.6 (10.0-20.0); Bilirubin, Total 0.5 mg/dL (0.2-1.0); Blood Urea Nitrogen 16 mg/dL (9-23); Calcium 9.3 mg/dL (8.7-10.4); Carbon Dioxide 25 mmol/L (20-31); Chloride 104 mmol/L (98-107); Sodium 141 mmol/L (136-145); Total Protein 7.8 g/dL (5.7-8.2)
[2025-02-01 01:43] LABS: Glucose 172 mg/dL (74-106); Potassium 3.1 mmol/L (3.5-5.1)
[2025-02-01 02:05] LABS: COVID19 ANTIGEN SOFIA FIA NEGATIVE (NEGATIVE)
[2025-02-01] MEDS ORDERED: AMPICILLIN & SULBACTAM SODIUM 3 GM in SODIUM CHL 0.9% 100 ML IV SCH ×2 (02:30→09:00)
[2025-02-01 04:04] LABS: Hematocrit 35.8 % (36.0-46.0); Hemoglobin 11.9 g/dL (12.2-16.2); Mean Corpuscular Hemoglobin 28.2 pg (28.0-32.0); Mean Corpuscular Volume 85.1 fL (80.0-100.0); Nucleated Red Blood Cells % 0.1 %
[2025-02-01 04:12] LABS: Chloride 105 mmol/L (98-107); Sodium 143 mmol/L (136-145)
[2025-02-01 04:13] LABS: Anion Gap 11 (5-15); Carbon Dioxide 27 mmol/L (20-31)
[2025-02-01 04:14] LABS: Calcium 9.2 mg/dL (8.7-10.4)
[2025-02-01 04:18] LABS: BUN/Creatinine Ratio 18.1 (10.0-20.0); Blood Urea Nitrogen 13 mg/dL (9-23)
[2025-02-01 04:28] LABS: Glucose 111 mg/dL (74-106); Potassium 3.0 mmol/L (3.5-5.1)
--- NOTE | 2025-02-01 04:40 | DVH ---
CHEST RADIOGRAPH Indication: Presyncope Technique: 1 view Comparison: CXRP on DOS: 05/03/22, CHEST PORTABLE on DOS: 05/03/22, CHEST XRAY 1 VIEW on DOS: 01/22/22 FINDINGS: Large skin fold overlying the right chest. Lines and Tubes: External leads. Lungs/Pleura: No focal consolidation, pleural effusion or pneumothorax. Interstitial opacities within normal limits. Cardiomediastinum: Normal heart size for technique. Other: No acute osseous abnormality. Cervical fixation hardware. IMPRESSION: 1. No acute cardiopulmonary abnormality within the exam limitation.
[2025-02-01] MEDS: MAGNESIUM SULFATE 1GM/100ML 100 ML IV ONE (05:34)
[2025-02-01] MEDS ORDERED: POTASSIUM CHL 20MEQ/100ML 100 ML IV SCH (08:00)
[2025-02-01] MEDS: AMPICILLIN & SULBACTAM SODIUM 3 GM in SODIUM CHL 0.9% 100 ML IV SCH (08:54)
[2025-02-01] MEDS: POTASSIUM CHL 20MEQ/100ML 100 ML IV SCH (09:06)
[2025-02-01] MEDS: PANTOPRAZOLE 40 MG TAB PO ONE (09:25)
[2025-02-01] MEDS ORDERED: PANTOPRAZOLE 40 MG/10 ML VIAL INJ IV SCH (10:00)
[2025-02-01] MEDS: ENOXAPARIN SOD 80 MG/0.8ML SYRINGE SC SCH (10:29)
[2025-02-01] MEDS: POTASSIUM CHLORIDE 60 MEQ, LIDOCAINE 1% (LOCAL ANESTH.) 6 ML in SODIUM CHL 0.9% 500 ML IV ONE (11:30)
--- NOTE | 2025-02-01 11:58 | DVHSR ---
APPROVED REPORT EXAM: Two-dimensional and M-mode echocardiogram with Doppler and color Doppler. Blood Pressure: 131/97 mmHg INDICATION Presyncope RISK FACTORS Height: 60, Weight: 143 DIMENSIONS LVDd (3.8-5.7cm)LA (2D)4.0 (1.9-4.0cm)Aortic Root2.7 (2.0-3.7cm) LVDs (2.5-4.0cm)LA (MM) (1.9-4.0cm)Aortic Cusp Exc1.4 (1.5-2.0cm) EF (%) 60.0 (55-70%)Rt. Atrium3.0 (1.9-4.0cm)Asc. Aorta cm Mitral Valve MitralMitral Stenosis E wave1.07m/sMV Mean GR.mmHg A wave0.59m/sMV Peak GR.mmHg E/A ratio1.82D MVAcm2 DECEL [id number] 1/2 Timems Aortic Valve Aortic ValveAortic Stenosis V11.01m/Olivia Mean GR.3mmHg V21.19m/Olivia Peak GR.6mmHg LVOT Diameter1.6 (1.8-2.4cm)Doppler AVA1.71cm2 Tricuspid Valve TR Velocity2.32m/s [id number] Conclusion lvef 60% mild lvh normal rv function left atrium enlarged mild
[2025-02-01] MEDS: METOPROLOL SUCCINATE XL 50 MG TAB PO ONE (15:24)
[2025-02-01 15:50] VITALS: BP 124/65; PULSE 90; RESP 17; TEMP 98.1; O2SAT 95
[2025-02-01 15:51] VITALS: BP 124/65; PULSE 68; PULSE 88; RESP 17; RESP 18; TEMP 98.1; O2SAT 95
[2025-02-01] MEDS ORDERED: AMLO1TAB23 PO (16:29)
[2025-02-01] MEDS ORDERED: LIDO1PAD55 TOP (16:30)
[2025-02-01] MEDS ORDERED: FLUT50SP NAS (16:30)
[2025-02-01] MEDS ORDERED: TRAM50TA2 PO (16:32)
[2025-02-01] MEDS ORDERED: LATA0.008 EACHEYE (16:33)
[2025-02-01] MEDS ORDERED: TIMO0.5S32 EACHEYE (16:33)
--- NOTE | 2025-02-01 17:43 | DVHPNRES ---
Progress Note Date Seen: Feb 01, 2025 Resident Creating Document: CARLOS MIKE RESIDENT Medical Necessity Reason Pt with a Central, PICC or Fol: No Subjective Review of Systems This is an 84-year-old female with past medical history of questionable atrial fibrillation, glaucoma, hypertension, colon cancer status post colectomy, asthma, sleep apnea on CPAP presented to the ER with chief complain of headache, dizziness. Patient reported of 2 episodes of headache since last 2 days. She describes headache as heaviness, throbbing radiating from occipital to parietal region, associated with flashing lights and eye pain. She complains of dizziness without loss of consciousness, starting as the same time as headache. She also reports urinary urgency since last 6-7 months. PMHx: Questionable atrial fibrillation (no EKG in [facility] record showing atrial fibrillation), glaucoma, hypertension, colon cancer status post colectomy, asthma, sleep apnea on CPAP PSHx: Colectomy, hysterectomy, appendectomy, lumpectomy, 3 surgeries of neck in 6 surgeries of back after trauma Social history: Denies smoking, alcohol, recreational drug use. Lives in house. Full code. Next of kin daughter Home medication: Albuterol, amlodipine, apixaban Allergic history: Iodine, sodium sulfate, sulfa antibiotics, sulfa drugs. The patient was seen and examined at bedside. Overnight events were reviewed. She reports having headache and visual floaters. She denies any other complaints. Objective vital signs Vital Sign Date Time Temp Pulse Resp B/P (MAP) Pulse Ox O2 Delivery O2 Flow Rate FiO2 02/01/25 15:51 68 18 95 Room Air* 0 21 02/01/25 15:51 98.1 124/65 (84) 98.1 medications Current Medications Medications Dose Ordered Sig/Jaclyn Route Start Time Stop Time Status Last Admin Dose Admin Acetaminophen 325 mg Q4HP PRN PO 01/31/25 23:30 Ondansetron HCl 4 mg Q4HP PRN IV 01/31/25 23:30 Morphine Sulfate 2 mg Q4HPRN PRN IV 01/31/25 23:30 Hold Amlodipine Besylate 5 mg DAILY PO 02/01/25 10:00 02/01/25 10:28 5 MG Latanoprost 1 drop HS EACHEYE 02/01/25 22:00 Pantoprazole Sodium 40 mg DAILY@0600 PO 02/02/25 06:00 Ampicillin Sodium/ Sulbactam Sodium 3 gm/Sodium Chloride 100 ml @ 100 mls/hr Q6H IV 02/01/25 09:00 02/01/25 16:31 100 MLS/HR Enoxaparin Sodium 70 mg Q12HR SC 02/01/25 10:00 02/01/25 10:29 70 MG Metoprolol Succinate 25 mg DAILY PO 02/02/25 10:00 Examination Exam General: Patient alert and oriented in person, place and time. Patient following commands. HEENT: Normocephalic, atraumatic, moist mucous membranes Respiratory/pulmonary: Clear lungs bilaterally, vesicular murmurs present in almost all lung lewis, no associated crackles or wheezes. Cardiovascular: Normal heart sounds S1 and S2 with no associated murmurs Abdomen: Abdomen nondistended, there is no pain to palpation in any of the abdominal quadrants, no palpable masses. Extremities: 1+ pitting edema in bilateral lower extremities. Peripheral Pulses: 3+ Radial (R). 3+ Radial (L). 3+ Dorsalis pedis (R). 3+ Dorsalis pedis(L) Skin: No rashes or pruritus, there is no sacral edema present at this time. Neurological: Intact cranial nerves with no focal neurologic deficits laboratory and microbiology Laboratory Tests 02/01/25 03:45 Test 02/01/25 03:45 Range/Units Serum Glucose 111 H 74-106 mg/dL Labs and/or images reviewed: Labs reviewed by me, Image(s) reviewed by me Problem List/Assessment/Plan Problem List/Assessment/Plan Presyncope, ruled out cardiac causes Paroxysmal atrial fibrillation CXR: Normal Echocardiogram: LV ejection fraction 60%, mild LVH, normal RV function, left atrium enlarged mildly. COVID and influenza negative Orthostatic vitals negative Monitor on telemetry for life-threatening arrhythmias EKG shows sinus tachycardia with PACs, EKG atrial fibrillation Metoprolol 25 mg p.o. daily Patient on Eliquis at home, continue therapeutic Lovenox Headaches secondary to maxillary sinusitis Head CT shows left maxillary sinusitis IV ampicillin sulbactam Hypertension Continue amlodipine 5 mg daily Glaucoma Continue latanoprost CKD class IIIa GFR-53 Strict control of blood pressure, diabetes Discussed avoiding nephrotoxins like NSAIDS, contrast Low salt diet, maintain hydration Hypokalemia Supplemented Monitor labs GI prophylaxis: Pantoprazole DVT prophylaxis: Lovenox Diet: Cardiac Goals of care discussed with the patient for more than 27 minutes: Full code status Case discussed with , patient and RN Plan discussed with: Patient (RN), Other Date of Service: Feb 01, 2025 Billing Provider: GRANT FLORES MD Common Visit Codes: [id number] INP/OBS CARE(HIGH) CARLSO MIKE RESIDENT Feb 01, 2025 17:43 GRANT FLORES MD Feb 04, 2025 19:28
[2025-02-01 20:00] VITALS: PULSE 73; PULSE 91; RESP 18; O2SAT 99
[2025-02-01 21:00] VITALS: BP 117/57; PULSE 73; RESP 18; TEMP 98.6; O2SAT 99
[2025-02-01] MEDS: LATANOPROST 0.005 % OPTH(EYE) SOL 2.5ML EACHEYE SCH (22:37)
[2025-02-02 01:00] VITALS: BP 111/52; PULSE 75; RESP 17; TEMP 99.2; O2SAT 95
[2025-02-02 05:00] VITALS: BP 145/52; PULSE 71; RESP 16; TEMP 99.1; O2SAT 97
[2025-02-02] MEDS: PANTOPRAZOLE 40 MG TAB PO SCH (05:50)
[2025-02-02 07:08] LABS: Hematocrit 35.4 % (36.0-46.0); Hemoglobin 11.8 g/dL (12.2-16.2); Mean Corpuscular Hemoglobin 28.5 pg (28.0-32.0); Mean Corpuscular Volume 85.7 fL (80.0-100.0); Nucleated Red Blood Cells % 0.1 %
[2025-02-02 07:17] LABS: Anion Gap 11 (5-15); Carbon Dioxide 24 mmol/L (20-31); Potassium 3.6 mmol/L (3.5-5.1); Sodium 143 mmol/L (136-145)
[2025-02-02 07:23] LABS: Calcium 8.6 mg/dL (8.7-10.4); Chloride 108 mmol/L (98-107)
[2025-02-02 07:24] LABS: BUN/Creatinine Ratio 9.7 (10.0-20.0); Glucose 93 mg/dL (74-106)
[2025-02-02 07:39] LABS: Blood Urea Nitrogen 7 mg/dL (9-23)
[2025-02-02 08:00] VITALS: PULSE 68; O2SAT 99
[2025-02-02 09:00] VITALS: BP 128/63; PULSE 63; RESP 17; TEMP 97.6; O2SAT 99
[2025-02-02] MEDS: METOPROLOL SUCCINATE XL 50 MG TAB PO SCH (09:29)
[2025-02-02] MEDS ORDERED: AUG875T PO (13:06)
--- NOTE | 2025-02-02 19:01 | DVHDSRES ---
Discharge Summary Date of Admission Resident Creating Document: CARLOS MIKE Jan 31, 2025 at 23:18 Date of Discharge: Feb 02, 2025 Admitting Diagnosis Presyncope Labs/Diagnostic Data: Laboratory Results Test 02/02/25 05:32 02/01/25 01:15 01/31/25 23:36 01/31/25 19:40 White Blood Count 6.9 10^3/uL (4.4-10.8) Red Blood Count 4.13 10^6/uL (4.0-5.20) Hemoglobin 11.8 g/dL (12.2-16.2) Hematocrit 35.4 % (36.0-46.0) Mean Corpuscular Volume 85.7 fL (80.0-100.0) Mean Corpuscular Hemoglobin 28.5 pg (28.0-32.0) Mean Corpuscular Hemoglobin Concent 33.3 g/dL (32.0-36.0) Red Cell Distribution Width 14.5 % (11.8-14.3) Platelet Count 189 10^3/uL (140-450) Mean Platelet Volume 10.1 fL (6.9-10.8) Neutrophils (%) (Auto) 48.9 % (37.0-80.0) Lymphocytes (%) (Auto) 35.3 % (10.0-50.0) Monocytes (%) (Auto) 6.5 % (0.0-12.0) Eosinophils (%) (Auto) 8.3 % (0.0-7.0) Basophils (%) (Auto) 1.0 % (0.0-2.0) Neutrophils # (Auto) 3.4 10 ^3/uL (1.6-8.6) Lymphocytes # (Auto) 2.4 10 ^3/uL (0.4-5.4) Monocytes # (Auto) 0.4 10 ^3/uL (0-1.3) Eosinophils # (Auto) 0.6 10 ^3/uL (0-0.8) Basophils # (Auto) 0.1 10 ^3/uL (0-0.2) Nucleated Red Blood Cells 0.1 % Sodium Level 143 mmol/L (136-145) Potassium Level 3.6 mmol/L (3.5-5.1) Chloride Level 108 mmol/L (98-107) Carbon Dioxide Level 24 mmol/L (20-31) Anion Gap 11 (5-15) Blood Urea Nitrogen 7 mg/dL (9-23) Creatinine 0.72 mg/dL (0.550-1.02) Glomerular Filtration Rate Calc 82 mL/min (>90) BUN/Creatinine Ratio 9.7 (10.0-20.0) Serum Glucose 93 mg/dL (74-106) Calcium Level 8.6 mg/dL (8.7-10.4) SARS-CoV-2 Antigen (Rapid) Negative (NEGATIVE) Prothrombin Time 11.7 sec (9.3-11.8) Prothrombin Time INR 1.12 (0.9-1.15) Activated Partial Thromboplast Time 29.9 SEC (24.5-34.5) Phosphorus Level 2.6 mg/dL (2.4-5.1) Magnesium Level 1.7 mg/dL (1.6-2.6) Total Bilirubin 0.5 mg/dL (0.2-1.0) Direct Bilirubin 0.1 mg/dL (<0.3) Aspartate Amino Transferase (AST) 21 U/L (13-40) Alanine Aminotransferase (ALT) 18 U/L (7-40) Alkaline Phosphatase 83 U/L (46-116) C-Reactive Protein High Sensitivity 0.48 mg/dL (<1.0) Total Protein 7.8 g/dL (5.7-8.2) Albumin 4.1 g/dL (3.2-4.8) Triglycerides Level 101 mg/dL (< 150) Cholesterol Level 191 mg/dL (< 200) LDL Cholesterol 118 mg/dL (< 100) HDL Cholesterol 59 mg/dL (40-59) Lipase 42 U/L (12-53) Vitamin B12 Level > 4000 pg/mL (211-911) Urine Color Yellow (Yellow) Urine Clarity Clear (Clear) Urine pH 6.0 (5.0-9.0) Urine Specific [place] 1.033 (1.001-1.035) Urine Protein 1+ (Negative) Urine Ketones 1+ (Negative) Urine Blood Negative /uL (Negative) Urine Nitrite Negative (Negative) Urine Bilirubin Negative (Negative) Urine Urobilinogen 2 mg/dL (Negative) Urine Leukocyte Esterase 1+ /uL (Negative) Urine RBC 2 /hpf (0 - 4) Urine Microscopic WBC 3 /HPF (0-5) Urine Squamous Epithelial Cells Few /hpf (<5) Urine Bacteria None seen /hpf (None Seen) Urine Hyaline Casts Mod /lpf (0 - 2) Urine Mucus Few (None Seen) Urine Glucose Normal mg/dL (Normal) Urine Opiates Screen Neg (NEGATIVE) Urine Fentanyl Screen Neg (NEGATIVE) Urine Barbiturates Screen Neg (NEGATIVE) Urine Phencyclidine Screen Neg (NEGATIVE) Urine Amphetamines Screen Neg (NEGATIVE) Urine Benzodiazepines Screen Neg (NEGATIVE) Urine Cocaine Screen Neg (NEGATIVE) Urine Cannabinoids Screen Neg (NEGATIVE) Test 01/31/25 14:13 Hemoglobin A1c 5.4 % A1C (<5.7) Vitamin D 25-Hydroxy 35.9 ng/mL (30.0-100) Thyroid Stimulating Hormone (TSH) 0.93 uIU/mL (0.55-4.78) Other Laboratory Tests 02/02/25 05:32 Brief Hx & Hospital Course: HPI: This is an 84-year-old female with past medical history of questionable atrial fibrillation, glaucoma, hypertension, colon cancer status post colectomy, asthma, sleep apnea on CPAP presented to the ER with chief complain of headache, dizziness. Patient reported of 2 episodes of headache since last 2 days. She describes headache as heaviness, throbbing radiating from occipital to parietal region, associated with flashing lights and eye pain. She complains of dizziness without loss of consciousness, starting as the same time as headache. She also reports urinary urgency since last 6-7 months. PMHx: Questionable atrial fibrillation (no EKG in [facility] record showing atrial fibrillation), glaucoma, hypertension, colon cancer status post colectomy, asthma, sleep apnea on CPAP PSHx: Colectomy, hysterectomy, appendectomy, lumpectomy, 3 surgeries of neck in 6 surgeries of back after trauma Social history: Denies smoking, alcohol, recreational drug use. Lives in house. Full code. Next of kin daughter Home medication: Albuterol, amlodipine, apixaban Allergic history: Iodine, sodium sulfate, sulfa antibiotics, sulfa drugs. Brief hospital course: Workup reveals sinus tachycardia with PACs and intermittent atrial fibrillation on EKG. Head CT showed left maxillary sinusitis, likely the cause of her headaches. She was treated with IV ampicillin and sulbactam. Cardiac evaluation showed preserved LV function ejection fraction 60%, mild LVH, and mildly enlarged left atrium. Orthostatic vitals were negative. She was continued on home medications including amlodipine, latanoprost and apixaban with addition of metoprolol 25 mg daily. CKD stage 3 was noted GFR 53, nephrotoxic agents were avoided, and dietary recommendations including low-salt and adequate hydration. Hypokalemia was corrected. She was monitored on telemetry and remained stable. Discharged in stable condition with follow up advised for sinusitis, CKD management, and atrial fibrillation monitoring. The patient was advised to follow up with supervisor hard candy for her glaucoma. The daughter was at bedside. The daughter was thoroughly explained the treatment, discharge plan and all the advice was received and they verbalized understanding. Pt is lying on bed General Appearance: Alert, Oriented X3, Cooperative, Mild distress HEENT: Atraumatic, Mucous membranes moist/pink Respiratory: Clear to auscultation, Normal air movement, No added sounds Cardiovascular: Regular rate, Normal S1, Normal S2, No murmurs Abdominal/ : Active bowel sounds, Soft, no distention, no tenderness Extremities: No edema, Normal pulses, No tenderness/swelling Skin: No Significant rash, except past surgical scars Neuro: Normal speech, sensorimotor deficits none Psych/Mental Status: Mental status NL, Mood NL Nurse was there as circuit judge during examination Case discussed with Dr. Otto Operations or Procedures PATIENT: KENNETH HAMEED ACCT: [id number] UNIT: [id number] : 1940 LOC: OVERFLOW ROOM / BED: [address] [place] [address] AGE / SEX: 84 / F ADM STATUS: ADM IN SERVICE [id number] ORDERING PHYSICIAN: SCOTTIE CHRISTIANSON RESIDENT PROCEDURE(s): CXR1 - CHEST XRAY 1 VIEW REASON: Presyncope ORDER NUMBER(s): [id number], ACCESSION NUMBER(s): [id number] CHEST RADIOGRAPH Indication: Presyncope Technique: 1 view Comparison: CXRP on DOS: 05/03/22, CHEST PORTABLE on DOS: 05/03/22, CHEST XRAY 1 VIEW on DOS: 01/22/22 FINDINGS: Large skin fold overlying the right chest. Lines and Tubes: External leads. Lungs/Pleura: No focal consolidation, pleural effusion or pneumothorax. Interstitial opacities within normal limits. Cardiomediastinum: Normal heart size for technique. Other: No acute osseous abnormality. Cervical fixation hardware. IMPRESSION: 1. No acute cardiopulmonary abnormality within the exam limitation. PATIENT: KENNETH HAMEED ACCT: [id number] UNIT: [id number] : 1940 LOC: ER ROOM / BED: / AGE / SEX: 84 / F ADM STATUS: REG ER SERVICE [id number] ORDERING PHYSICIAN: BROOKLYNN SPENCE MD PROCEDURE(s): HWOCT - HEAD WITHOUT CONTRAST REASON: LUCAS ORDER NUMBER(s): [id number], ACCESSION NUMBER(s): [id number] CT HEAD WITHOUT CONTRAST INDICATION: LUCAS COMPARISON: CT HEAD WITHOUT CONTRAST on DOS: 09/15/23, BRAIN HEAD WO CONTRAST on DOS: 05/04/22, HEAD WITHOUT CONTRAST on DOS: 05/03/22 TECHNIQUE: CT of the head without intravenous contrast. RADIATION DOSE: CTDIvol: 53.46 mGy, DLP: 53.46 mGy*cm FINDINGS: There is no evidence of acute intracranial hemorrhage, extra-axial collection, mass effect, midline shift, herniation or hydrocephalus. The ventricles, sulci and cisterns are age appropriate. The torres-white differentiation is intact. Complete opacification of the left maxillary sinus . Scattered opacification of the ethmoid air cells. The surrounding soft tissues and osseous structures are unremarkable. IMPRESSION: 1. No acute intracranial abnormality. 2. Left maxillary sinusitis. Condition at Discharge: Stable Final Diagnosis/Problems List Headache due to maxillary sinusitis Presyncope, ruled out cardiac causes Paroxysmal atrial fibrillation Hypertension Glaucoma CKD class IIIa Hypokalemia Discharge Disposition: Home Discharge Instruct/Medications Diet: Consistent carbohydrate, Cardiac 2g Na,low cholest Activity: No Restrictions, As Tolerated Follow Up/Referral: Follow up with PCP, DC clinic in 2 weeks. Scheduled Acetaminophen (Tylenol), 325 MG PO QID Amiodarone Hcl (Amiodarone Hcl), 200 MG PO BID Amoxicillin & Pot Clavulanate (Augmentin Tablet), 875 MG PO BID Apixaban Base (Eliquis), 5 MG PO BID Diclofenac Sodium (Topical) (Voltaren Arthritis Pain), 1 % EX QID Metoprolol Succinate (Toprol Xl), 1 TAB PO DAILY Tramadol Hcl (Tramadol Hcl), 50 MG PO TID, (Reported) Scheduled PRN Albuterol Sulfate (Albuterol Sulfate Hfa), 108 MCG IN TID PRN Lidocaine (Anorectal) (Lidocaine 5%), 5 % EX DAILYP PRN Miscellaneous Medications Amlodipine Besylate (Norvasc Tablet), 0 GT, (Reported) Fluticasone Propionate (Nasal) (Fluticasone Propionate), SPRAY ESE, (Reported) Latanoprost (Latanoprost), 1 DROP EACHEYE, (Reported) Lidocaine (Lidocaine), TOP, (Reported) Timolol Maleate (Ophth) (Timolol Maleate), EACHEYE, (Reported) Discontinued Medications Amlodipine Besylate (Amlodipine Besylate), 1 TAB PO DAILY, (Reported) Amoxicillin & Pot Clavulanate (Amoxicillin/Potassium Cla), 1 TAB PO BID Azithromycin (Azithromycin), 500 MG PO DAILY Dextromethorphan-Guaifenesin (Robitussin-Dm), 10 ML PO Q4HP PRN Nitrofurantoin Monohydrate Mac (Macrobid), 100 MG PO BID Discharge Statement: "Patient was advised to return to the ER or call 911 if any headaches, dizziness, shortness of breath, chest pain, abdominal pain, bleeding, fevers, or worsening of medical condition. Patient was counseled about treatment plan, medications, possible side effects, patientverbalized understanding. All questions were answered to the best of my ability. This discharge took greater then 30 minutes in planning, reviewing documentation, counseling the patient, and discussing with other team members." ASSESSMENT ASSESSMENT Assessment Headache due to maxillary sinusitis Date of Service: Feb 02, 2025 Billing Provider: GRANT OTTO MD Common Visit Codes: 05432-CRL/OBS DISCH DAY >30min CARLOS MIKE RESIDENT Feb 02, 2025 19:01 GRANT OTTO MD Feb 04, 2025 19:28
== END 2025-02-02 15:37 | disposition home or self-care (01) | DRG 74 ==
LOC: ER 12:29 → OVERFLOW 23:18 → EDBD 23:18 → TELE-CENTR 02-01 15:43
PROVIDERS: ADMIT Internal Medicine Geriatric Medicine; ATTEND Internal Medicine Geriatric Medicine
DX: G90.89 Other disorders of autonomic nervous system (principal); J01.00 Acute maxillary sinusitis, unspecified; I48.0 Paroxysmal atrial fibrillation; H40.9 Unspecified glaucoma; R55 Syncope and collapse; N18.31 Chronic kidney disease, stage 3a; E87.6 Hypokalemia; Z20.822 Contact with and (suspected) exposure to COVID-19; K21.9 Gastro-esophageal reflux disease without esophagitis; I12.9 Hypertensive chronic kidney disease with stage 1 through stage 4 chronic kidney disease, or unspecified chronic kidney disease; E78.5 Hyperlipidemia, unspecified; J45.909 Unspecified asthma, uncomplicated; Z88.2 Allergy status to sulfonamides; Z88.8 Allergy status to other drugs, medicaments and biological substances; Z91.041 Radiographic dye allergy status; Z90.710 Acquired absence of both cervix and uterus; Z90.49 Acquired absence of other specified parts of digestive tract; Z80.9 Family history of malignant neoplasm, unspecified; Z82.49 Family history of ischemic heart disease and other diseases of the circulatory system; Z85.038 Personal history of other malignant neoplasm of large intestine
CPT/HCPCS: 36415; 70450; 71045; 80048; 80053; 80061; 80076; 80307; 81001; 82306; 82607; 83036; 83690; 83735; 84100; 84443; 85025; 85610; 85730; 86141; 87426; 93005; 93306; G0378; J2003